=== PATIENT | male | born 1950 | race American Indian/Alaskan Native ===

== ENCOUNTER 2021-09-15 17:59 | Emergency (ER) | payer SELFPAY ==
[2021-09-15] MEDS ORDERED: LIDOCAINE 1%/EPINEPHRINE 1:100,000 VIAL (20 ML) INFILTRATI ONE (19:10)
[2021-09-15] MEDS ORDERED: KETOROLAC 60 MG/2 ML INJ IM ONE (19:34)
[2021-09-15] MEDS ORDERED: COLCHICINE 0.6 MG TAB PO ONE (19:34)
--- NOTE | 2021-09-15 20:03 | Emergency Department Report ---
HPI - General Chief Complaint: Extremity Problem,Nontraumatic Time Seen by Provider: 09/15/21 19:02 - HPI HPI: Room 1 Patient is a 70-year-old male present with a chief complaint of right knee pain and right hand pain. The patient has a history of gout and he states over the past 3 to 4 days he has noticed pain and swelling of his right hand and knee. Patient denies any history of direct trauma. Patient denies history of fever. Patient currently gives his pain a score of "20/10." ED Past Medical Hx - Past Medical History Previous Medical History?: Yes Hx Hypertension: Yes Hx Arthritis: Yes (Gout) - Surgical History Past Surgical History?: No - Family History Family history: no significant - Social History Smoking Status: Never Smoker Substance Use Type: None (Denies illicit drug use), Alcohol (Occasional) - Medications Home Medications: Home Medications Medication Instructions Recorded Confirmed Last Taken Type Prednisone [predniSONE 5 mg (6-Day 5 mg PO .TAPER #1 tab.ds.pk 03/21/16 Unknown Rx Pack, 21 Tabs)] traMADoL [Ultram] 50 mg PO Q6HR PRN #20 tablet 03/21/16 Unknown Rx Colchicine [Colcrys] 0.6 mg PO BID #20 tab 09/15/21 Unknown Rx HYDROcodone/APAP 5-325 [[place] 1 - 2 each PO Q6HR PRN #14 tablet 09/15/21 Unknown Rx 5/325] Ibuprofen [Motrin 800 MG tab] 800 mg PO Q8HR PRN #20 tablet 09/15/21 Unknown Rx ED Review of Systems ROS: Stated complaint: KNEE HAND SWELLING Other details as noted in HPI Constitutional: denies: fever Eyes: denies: eye pain ENT: denies: throat pain Respiratory: no symptoms reported Cardiovascular: denies: chest pain Endocrine: no symptoms reported Gastrointestinal: denies: abdominal pain Genitourinary: denies: dysuria Musculoskeletal: arthralgia Neurological: denies: headache Physical Exam - Physical Exam Vital Signs: Vital Signs 09/15/21 09/15/21 09/15/21 18:09 18:49 18:58 Temperature 101 F H Pulse Rate 136 H Respiratory 16 20 Rate Blood Pressure 140/97 Blood Pressure 136/91 [Left] O2 Sat by Pulse 97 96 Oximetry 09/15/21 09/15/21 19:00 19:16 Temperature 100.2 F H Pulse Rate 118 H Respiratory 25 H Rate Blood Pressure Blood Pressure [Left] O2 Sat by Pulse 99 Oximetry Vital Signs 09/15/21 09/15/21 09/15/21 18:09 18:49 18:58 Temperature 101 F H Pulse Rate 136 H Respiratory 16 20 Rate Blood Pressure 140/97 Blood Pressure 136/91 [Left] O2 Sat by Pulse 97 96 Oximetry 09/15/21 09/15/21 09/15/21 19:00 19:16 19:30 Temperature 100.2 F H Pulse Rate 118 H 115 H Respiratory 25 H 25 H Rate Blood Pressure 148/95 Blood Pressure [Left] O2 Sat by Pulse 99 99 Oximetry 09/15/21 09/15/21 09/15/21 20:00 20:30 21:00 Temperature Pulse Rate 112 H 114 H 104 H Respiratory 28 H 29 H 25 H Rate Blood Pressure 149/97 149/97 151/95 Blood Pressure [Left] O2 Sat by Pulse 97 98 97 Oximetry 09/15/21 09/15/21 21:30 22:54 Temperature 98.7 F Pulse Rate 93 H Respiratory 21 Rate Blood Pressure 147/90 Blood Pressure [Left] O2 Sat by Pulse 99 Oximetry Physical Exam: GENERAL: The patient is well-developed well-nourished male lying on stretcher not appearing to be in acute distress. [] HEENT: Normocephalic. Atraumatic. Extraocular motions are intact. Patient has moist mucous membranes. NECK: Supple. Trachea midline CHEST/LUNGS: There is no respiratory distress noted. HEART/CARDIOVASCULAR: Regular. There is tachycardia. There is no gallop rub or murmur. SKIN: There is no rash. There is moderate edema of the right knee with obvious effusion. Mild swelling to the dorsum of the right hand mostly over the MCPs. No overlying evidence of cellulitis of the hand or knee. There is no diaphoresis. NEURO: The patient is awake, alert, and oriented. The patient is cooperative. The patient has no focal neurologic deficits. The patient has normal speech. GCS 15 MUSCULOSKELETAL: There is right knee effusion ED Course Vital Signs 09/15/21 09/15/21 09/15/21 18:09 18:49 18:58 Temperature 101 F H Pulse Rate 136 H Respiratory 16 20 Rate Blood Pressure 140/97 Blood Pressure 136/91 [Left] O2 Sat by Pulse 97 96 Oximetry 09/15/21 09/15/21 19:00 19:16 Temperature 100.2 F H Pulse Rate 118 H Respiratory 25 H Rate Blood Pressure Blood Pressure [Left] O2 Sat by Pulse 99 Oximetry - Joint Aspiration/Injection Consent Obtained: verbal consent Time Out Performed: No Indications: R/O septic arthritis Side of Body: right Joint Aspirated: knee Ultrasound Guidance: No Skin Prep: Povidone-Iodine1% Local Anesthesia Used: with Epi Amount of Anesthesia Used (mls): 3 Needle Size Used: 18G Syringe Size Used: Other (35) Fluid Obtained: turbid Total Fluid Obtained (mls): 35 Patient Tolerated Procedure: well Complications: none ED Medical Decision Making - Lab Data Result diagrams: 09/15/21 20:10 09/15/21 20:10 Laboratory Tests 09/15/21 09/15/21 09/15/21 19:50 20:10 20:10 WBC 9.7 RBC 4.13 Hgb 12.1 Hct 36.3 MCV 88 MCH 29 MCHC 33 RDW 12.1 L Plt Count 256 Lymph % (Auto) 10.2 L [place] % (Auto) 13.9 H Eos % (Auto) 0.0 Baso % (Auto) 0.3 Lymph # (Auto) 1.0 L [place] # (Auto) 1.3 H Eos # (Auto) 0.0 Baso # (Auto) 0.0 Seg Neutrophils % 75.6 H Seg Neutrophils # 7.4 Sodium 139 Potassium 3.8 Chloride 100.2 Carbon Dioxide 23 Anion Gap 20 BUN 9 Creatinine 0.9 Estimated GFR > 60 BUN/Creatinine Ratio 10 Glucose 101 H Calcium 9.8 Urine Color Urine Turbidity Urine pH Ur Specific [place] Urine Protein Urine Glucose (UA) Urine Ketones Urine Blood Urine Nitrite Urine Bilirubin Urine Urobilinogen Ur Leukocyte Esterase Urine WBC (Auto) Urine RBC (Auto) U Epithel Cells (Auto) Urine Mucus Fluid Type Synovial Fluid Color Yellow Fluid Appearance Turbid Fluid WBC 125 Fluid RBC 96294 Synovial Crystals Msu crystals 09/15/21 Unknown WBC RBC Hgb Hct MCV MCH MCHC RDW Plt Count Lymph % (Auto) [place] % (Auto) Eos % (Auto) Baso % (Auto) Lymph # (Auto) [place] # (Auto) Eos # (Auto) Baso # (Auto) Seg Neutrophils % Seg Neutrophils # Sodium Potassium Chloride Carbon Dioxide Anion Gap BUN Creatinine Estimated GFR BUN/Creatinine Ratio Glucose Calcium Urine Color [place] Urine Turbidity Clear Urine pH 5.0 Ur Specific [place] 1.021 Urine Protein 100 mg/dl Urine Glucose (UA) Neg Urine Ketones 20 Urine Blood Neg Urine Nitrite Neg Urine Bilirubin Neg Urine Urobilinogen 4.0 Ur Leukocyte Esterase Neg Urine WBC (Auto) 1.0 Urine RBC (Auto) 2.0 U Epithel Cells (Auto) < 1.0 Urine Mucus 2+ Fluid Type Fluid Color Fluid Appearance Fluid WBC Fluid RBC Synovial Crystals - Differential Diagnosis Gout, septic arthritis, inflammatory arthritis, UTI Critical care attestation.: If time is entered above; I have spent that time in minutes in the direct care of this critically ill patient, excluding procedure time. ED Disposition Clinical Impression: Acute gouty arthritis, Acute pain of right knee, Right hand pain Disposition: HOME / SELF CARE / HOMELESS Is pt being admited?: No Does the pt Need Aspirin: No Condition: Stable Instructions: Acute Knee Pain, Adult, Low-Purine Eating Plan Additional Instructions: Return to the emergency department should you develop worsening symptoms, inability to tolerate food or liquids, high fever or any other concerns Prescriptions: Colchicine [Colcrys] 0.6 mg PO BID #20 tab Ibuprofen [Motrin 800 MG tab] 800 mg PO Q8HR PRN #20 tablet PRN Reason: Pain, Moderate (4-6) HYDROcodone/APAP 5-325 [[place] 5/325] 1 - 2 each PO Q6HR PRN #14 tablet PRN Reason: Pain Referrals: VALENCIA VERDIN MD [Staff Physician] - 3-5 Days (Dr. Verdin is an orthopedic surgeon. Please follow-up with him for further evaluation) Time of Disposition: 23:46
[2021-09-15 20:39] LABS: BUN/Creatinine Ratio 10; Blood Urea Nitrogen 9 mg/dL (9-20); Calcium 9.8 mg/dL (8.4-10.2); Hemolysis Index 1
[2021-09-15 20:46] LABS: Basophils % (Auto) 0.3 % (0.0-1.8); Hematocrit 36.3 % (35.5-45.6); Hemoglobin 12.1 gm/dl (11.8-15.2); Lymphocytes % (Auto) 10.2 % (13.4-35.0); Mean Corpuscular HGB Conc 33 % (32-34); Mean Corpuscular Volume 88 fl (84-94); Monocytes # (Auto) 1.3 K/mm3 (0.0-0.8); Monocytes % (Auto) 13.9 % (0.0-7.3); Platelet Count 256 K/mm3 (140-440); Red Blood Count 4.13 M/mm3 (3.65-5.03); Red Cell Distribution Width 12.1 % (13.2-15.2)
[2021-09-15 23:07] LABS: Bilirubin,Urine NEG (Negative); Blood,Urine NEG (Negative); Color,Urine Amber (Yellow); Mucus,Urine 2+ /HPF
[2021-09-16 00:46] VITALS: BP 133/78
[2021-09-16 01:38] LABS: Total Cells Counted 100 /mm3
== END 2021-09-16 00:18 | disposition home or self-care (01) ==
LOC: ED 17:59
DX: M10.9 Gout, unspecified (principal); M25.561 Pain in right knee; M79.641 Pain in right hand; I10 Essential (primary) hypertension
CPT/HCPCS: 20610; 36415; 80048; 81001; 85025; 85048; 87116; 89051; 96372; 99283; J1885